=== PATIENT | female | born 1985 | race Caucasian/White ===

== ENCOUNTER 2025-07-03 10:26 | Emergency (ER) | payer OTHER, SELFPAY ==
--- NOTE | ~2025-07-03 | XR_ITS ---
EXAMINATION: XR chest 2V DATE: 07/03/2025 11:20 INDICATION: Cough and left-sided chest pain with breathing TECHNIQUE: PA and lateral views of the chest were obtained. COMPARISON: None FINDINGS: Retrocardiac airspace opacity left lower lung zone which could represent pneumonia or atelectasis. No pulmonary edema, pleural effusion or pneumothorax. The cardiomediastinal silhouette is normal. Visualized bones and soft tissues are unremarkable. IMPRESSION: 1. Opacity in the left lower lung which could represent pneumonia or atelectasis. Reviewed, dictated and finalized at location A. UET COORDINATOR IMPRESSION: 1. Opacity in the left lower lung which could represent pneumonia or atelectasi s.
[2025-07-03 10:40] VITALS: BP 129/73; PULSE 103; RESP 20; TEMP 37.2; O2SAT 100
--- NOTE | 2025-07-03 10:57 | ED.URI ---
HPI - URI/Sore Throat General Chief Complaint: Upper Respiratory Infection Stated Complaint: trouble breathing Time Seen by Provider: 07/03/25 10:57 Source: patient Mode of arrival: ambulatory Limitations: no limitations History of Present Illness HPI Narrative: 40 yo F presents with cough, fatigue for 2 days. Began having pain to L lung when taking deep breath and coughing last night. No resp distress. Not taking any OTC medications. Afebrile. All systems reviewed and negative except as noted above. Related Data Allergies Allergy/AdvReac Type Severity Reaction Status Date / Time No Known Allergies Allergy Verified 07/03/25 10:50 COUNT INCLUDES THE [facility] Surgical History Surgical History H/O: Social History Social History Tobacco type: cigarettes Comments At time of signature, agree with nursing past medical, surgical, social and family history. There is no relevant family history pertinent to the presenting complaint. Exam Narrative: GENERAL: This is a well-nourished, well-developed patient, in no apparent distress. HEAD: normocephalic, atraumatic. EYES: PERRL. Sclera clear/white. Vision is grossly intact. EARS: External ears normal, auditory canals clear and without drainage, TMs normal without perforation. Hearing grossly intact. NOSE: External nose normal with no obvious nasal discharge, nares without redness, no rhinorrhea. THROAT: Mucous membranes moist, posterior pharynx clear. NECK: Neck supple, non-tender without lymphadenopathy, masses or thyromegaly. CARDIOVASCULAR: Regular rate and rhythm without murmurs, gallops, or rubs. RESPIRATORY: Decreased to left lower lung field. Breath sounds equal bilaterally. No wheezes, rales, or rhonchi. SKIN: warm, Dry, intact with no suspicious lesions or rash, good texture and turgor. NEURO: awake, alert, and oriented to person, place and time. There were no obvious focal neurologic abnormalities. EXTREMITIES: No joint tenderness, effusion, or edema noted. Course Course Level of Care: Express Care Visit Vital Signs Vital signs: Vital Signs Temperature 37.2 C 07/03/25 10:40 Pulse Rate 103 H 07/03/25 10:40 Respiratory Rate 20 07/03/25 10:40 Blood Pressure 129/73 07/03/25 10:40 Pulse Oximetry 100 07/03/25 10:40 Temperature 37.2 C 07/03/25 10:40 Pulse Rate 103 H 07/03/25 10:40 Respiratory Rate 20 07/03/25 10:40 Blood Pressure 129/73 07/03/25 10:40 Pulse Oximetry 100 07/03/25 10:40 Reviewed MDM - URI/Sore Throat MDM Narrative Medical decision making narrative: chest x-ray atelectasis versus pneumonia. Due to patient's symptoms will treat for pneumonia. Prescription for azithromycin sent to pharmacy. Discussed results with patient. Patient is well-appearing, nontoxic. No respiratory distress. Differential Diagnosis Differential diagnosis: Likely upper respiratory infection, viral infection and other ( Pneumonia) Imaging Data My impression: agree with radiologist Radiologist's impression: EXAMINATION: XR chest 2V DATE: 07/03/2025 11:20 INDICATION: Cough and left-sided chest pain with breathing TECHNIQUE: PA and lateral views of the chest were obtained. COMPARISON: None FINDINGS: Retrocardiac airspace opacity left lower lung zone which could represent pneumonia or atelectasis. No pulmonary edema, pleural effusion or pneumothorax. The cardiomediastinal silhouette is normal. Visualized bones and soft tissues are unremarkable. IMPRESSION: 1. Opacity in the left lower lung which could represent pneumonia or atelectasis. Discharge Plan Discharge Clinical Impression: Pneumonia Patient Disposition: Home Condition: Stable Instructions: Antibiotic Form, Pneumonia (ED) Additional Instructions: take antibiotic as prescribed until gone. Take ibuprofen or Tylenol every 6-8 hours as needed for pain. Drink at least 64 oz of water a day. See your doctor if not improving. Patient Language: Thai Prescriptions: New azithromycin 250 mg tablet See Rx Instructions .ROUTE .COMPLEX Qty: 6 0RF Rx Instructions: For 250 mg dose pack: take 500 mg today (day 1), then 250 mg for 4 days (days 2-5) methylprednisolone [Medrol (Sathya)] 4 mg tablets,dose pack See Rx Instructions PO .COMPLEX Qty: 21 0RF Rx Instructions: orally per package directions No Action duloxetine 20 mg capsule,delayed release(DR/EC) 40 mg PO BID Qty: 360 1RF amlodipine 2.5 mg tablet 2.5 mg PO DAILY Qty: 90 1RF Follow-up/Referrals: Mikaela Krishnamurthy APRN [Primary Care Provider, Internal Medicine] Time of Disposition: 12:00
== END 2025-07-03 12:00 | disposition home or self-care (01) ==
PROVIDERS: Emergency Provider Nurse Practitioner Family; PCP Nurse Practitioner Family
DX: J18.9 Pneumonia, unspecified organism (principal); F17.200 Nicotine dependence, unspecified, uncomplicated
CPT/HCPCS: 71046; 99213; G0463

== ENCOUNTER 2025-07-11 10:44 | Emergency (ER) | payer OTHER, SELFPAY ==
--- NOTE | ~2025-07-11 | XR_ITS ---
EXAM/PROCEDURE: XR chest 2V HISTORY: Recent pneumonia. Pain with inspiration. COMPARISON: July 03 TECHNIQUE: Two view(s) of the chest. FINDINGS: LUNGS: Clear of acute processes. Previously described opacity seen inferiorly on the left is no longer present. PLEURAL SPACES: Clear. No evidence of fluid or pneumothorax. HEART/ MEDIASTINUM: Normal in appearance. SOFT TISSUES: No significant findings. BONES: No acute osseous abnormality. IMPRESSION: No acute findings. Resolution of questioned area at the left lung base. Reviewed, dictated and finalized at location A. OSITE LAMINATOR
[2025-07-11 10:51] VITALS: BP 120/83; PULSE 75; RESP 16; TEMP 36.9; O2SAT 100
--- NOTE | 2025-07-11 11:03 | ED_ITS ---
HPI - URI/Sore Throat General Chief Complaint: Upper Respiratory Infection Stated Complaint: Sinus Source: patient and RN notes reviewed Mode of arrival: ambulatory Limitations: no limitations History of Present Illness HPI Narrative: 40-year-old female presents Express Care complaining follow-up for pneumonia. Patient was seen here approximately 1 week ago was treated with pneumonia with azithromycin in a Medrol Dosepak. Patient completed the courses of treatment. Patient reports she is feeling better however she reports she is still having symptoms. Patient reports in mucopurulent cough, left-sided chest pain with inspiration, chills, sweats. Patient denies any fevers, body aches, nausea, vomiting, diarrhea, chest pain with exertion, chest pressure, jaw pain, left arm pain, any upper respiratory symptoms, abdominal pain, or any other symptoms. Patient for she smokes cigarettes as well. Patient has not taken any else to help with symptoms. Related Data Allergies Allergy/AdvReac Type Severity Reaction Status Date / Time No Known Allergies Allergy Verified 07/11/25 11:09 Review of Systems Review of Systems: CONSTITUTIONAL: Denies fever, and body. For chills and sweats EYES: Denies visual changes, redness, or discharge. ENT: Denies rhinorrhea, congestion, sore throat, or otalgia. CARDIOVASCULAR: Denies chest pain, chest pain with exertion, redness, lightheadedness, palpitations, or edema. RESPIRATORY: Positive for cough and pain with inspiration. Negative for wheezing, difficulty breathing, or dyspnea. GASTROINTESTINAL: Denies abdominal pain, nausea, vomiting, or diarrhea. GENITOURINARY: Denies dysuria or hematuria. SKIN: Denies rash or itching. MUSCULOSKELETAL: Denies back pain, joint pain, or myalgia. NEUROLOGIC: Denies headache, numbness, or weakness. PSYCHIATRIC: Denies anxiety or depression. All other systems reviewed are negative, except as documented in HPI. [facility] Surgical History Surgical History H/O: Social History Social History Smoking status: Current every day smoker Tobacco type: cigarettes Comments At the time of my signature, I reviewed and agree with the nursing past medical, surgical, social, and family history. There is no relevant family history pertinent to the patient complaint. Exam Narrative: GENERAL: This is a well-nourished, well-developed adult, in no apparent distress. They are non ill-appearing, nontoxic appearing. HEAD: normocephalic, atraumatic. EYES: Sclera clear/white. Conjunctiva normal. Vision is grossly intact. Extraocular movements intact EARS: External ears normal, auditory canals clear and without drainage, TMs normal without perforation. Hearing grossly intact. NOSE: External nose normal with no obvious nasal discharge, nasal turbinates without redness, no rhinorrhea. THROAT: Mucous membranes moist, posterior pharynx clear, without erythema or swelling. Uvula midline. NECK: Neck supple, non-tender without lymphadenopathy, masses or thyromegaly. CARDIOVASCULAR: Regular rate and rhythm without murmurs, gallops, or rubs. RESPIRATORY: Clear to auscultation. Breath sounds equal bilaterally. No wheezes, rales, or rhonchi. Respiratory rate normal, respiratory effort nonlabored, no respiratory distress SKIN: warm, Dry, intact with no suspicious lesions or rash, good texture and turgor. NEURO: awake, alert, and oriented to person, place and time. There were no o bvious focal neurologic abnormalities. EXTREMITIES: No joint tenderness, effusion, or edema noted. BACK: Nontender without deformity. Course Course Emergency Course: Portions of this record may have been created with voice recognition software Level of Care: Express Care Visit Vital Signs Vital signs: Vital Signs Temperature 98.4 F 07/11/25 10:51 Pulse Rate 75 07/11/25 10:51 Respiratory Rate 16 07/11/25 10:51 Blood Pressure 120/83 07/11/25 10:51 Pulse Oximetry 100 07/11/25 10:51 Oxygen Delivery Room Air 07/11/25 10:51 Temperature 98.4 F 07/11/25 10:51 Pulse Rate 75 07/11/25 10:51 Respiratory Rate 16 07/11/25 10:51 Blood Pressure 120/83 07/11/25 10:51 Pulse Oximetry 100 07/11/25 10:51 Oxygen Delivery Room Air 07/11/25 10:51 Reviewed MDM - URI/Sore Throat MDM Narrative Medical decision making narrative: Chest x-ray reveals resolution of previous opacities to the left lower lobe. No acute cardiopulmonary findings. Lungs are clear to auscultation, no adventitio us lung sounds. However given still having symptoms will go ahead and treat her with Augmentin. Discussed physical exam findings. Advised supportive measures and signs/symptoms to go to the ER. Pt is appropriate for outpt treatment and f/u. Differential Diagnosis Differential diagnosis: Likely upper respiratory infection, sinusitis, viral infection, bronchitis and other (Pneumonia, post infectious cough) Imaging Data Radiologist's impression: ITS Impressions Chest X-Ray 07/11/25 11:17 IMPRESSION: No acute findings. Resolution of questioned area at the left lung base. Critical Care Time Critical Care Time Critical Care Time: No Discharge Plan Discharge Clinical Impression: Pneumonia Qualifiers: Pneumonia type: due to unspecified organism Laterality: unspecified laterality Lung location: unspecified part of lung Qualified Code(s): J18.9 - Pneumonia, unspecified organism Patient Disposition: Home Condition: Stable Instructions: Antibiotic Form, Bacterial Pneumonia (ED) Additional Instructions: Your chest x-ray has improved, no evidence of any acute cardiopulmonary findings, suture still having persistent symptoms will go ahead and give another course antibiotics. Take antibiotics as directed until complete. eat small frequent meals. Get lots of rest and drink fluids. Alternate Tylenol and ibuprofen for pain/fever, follow instructions on the bottle. Call your Primary Care Doctor and make a follow-up appointment in 3 to 5 days for re-evaluation. Go to the ER for worsening symptoms, difficulty breathing, weakness, fevers, chest pains, unable to talk in full sentences, vomiting, or any serious concerns. Patient Language: Croatian Prescriptions: New amoxicillin-pot clavulanate 875-125 mg tablet 1 tablet PO Q12H 5 Days Qty: 10 0RF No Action duloxetine 20 mg capsule,delayed release(DR/EC) 40 mg PO BID Qty: 360 1RF amlodipine 2.5 mg tablet 2.5 mg PO DAILY Qty: 90 1RF Follow-up/Referrals: Mikaela Krishnamurthy APRN [Primary Care Provider, Internal Medicine] Time of Disposition: 11:31
== END 2025-07-11 11:38 | disposition home or self-care (01) ==
PROVIDERS: PCP Nurse Practitioner Family
DX: J18.9 Pneumonia, unspecified organism (principal); F17.210 Nicotine dependence, cigarettes, uncomplicated
CPT/HCPCS: 71046; 99213; G0463